=== PATIENT | male | born 1985 | race African-American/Black ===

== ENCOUNTER 2022-07-05 04:34 | Emergency (ER) | payer MEDICAID ==
[~2022-07-05] VITALS: Ht 180.3 cm; Wt 131.5 kg
--- NOTE | 2022-07-05 04:45 | NUR ---
PT RC'D IN [facility], PT ASSESSMENT PERFORMED AWAITING MD ORDERS.
[2022-07-05 04:46] VITALS: BP 135/71
--- NOTE | 2022-07-05 04:46 | NUR ---
TO BED AMBULATORY
[2022-07-05] MEDS ORDERED: NACL 0.9% 1,000 ML IV ONE (05:15)
[2022-07-05] MEDS ORDERED: ONDANSETRON 4 MG/2 ML VIAL IVP ONE (05:15)
[2022-07-05] MEDS ORDERED: KETOROLAC 30 MG/ML VIAL IVP ONE (05:15)
--- NOTE | 2022-07-05 05:20 | NUR ---
TO CT VIA W/C
--- NOTE | 2022-07-05 05:27 | NUR ---
RETURNED FROM CT
[2022-07-05 05:58] LABS: APPEARANCE,URINE CLEAR (CLEAR); BILIRUBIN,URINE NEGATIVE (NEGATIVE); BLOOD, URINE TRACE-I (NEGATIVE); COLOR,URINE YELLOW (YELLOW); LEUKOCYTE ESTERASE ,URINE NEGATIVE (NEGATIVE); NITRITE, URINE NEGATIVE (NEGATIVE); UGLUCOSE NEGATIVE (NEGATIVE)
[2022-07-05 06:05] LABS: BASOPHILS % (AUTO) 0.2 % (0.0-2.0); EOSINOPHILS % (AUTO) 0.3 % (0.0-4.0); HEMATOCRIT 43.4 % (36-52); HEMOGLOBIN 15.1 g/dL (12.0-18.0); LYMPHOCYTES # (AUTO) 0.9 K/uL (2.0-11.5); LYMPHOCYTES % (AUTO) 16.3 % (20.5-51.1); MEAN CORPUSCULAR HEMOGLOBIN 30 pg (27-31); MEAN CORPUSCULAR HGB CONC 35 g/dL (33-37); MEAN CORPUSCULAR VOLUME 84.9 fL (80-94); MONOCYTES # (AUTO) 0.5 K/uL (0.8-1.0); MONOCYTES % (AUTO) 10.1 % (1.7-9.3); NEUTROPHILS # (AUTO) 3.9 K/uL (1.8-7.7); NEUTROPHILS % (AUTO) 73.1 % (42.2-75.2); PLATELET COUNT (AUTO) 279 K/uL (140-450); RED BLOOD CELL COUNT(AUTO) 5.11 MIL/uL (4.20-6.10); RED CELL DISTRIBUTION WIDTH 13.6 % (11.6-13.7); WHITE BLOOD COUNT (AUTO) 5.3 K/uL (4.8-10.8)
[2022-07-05 06:11] LABS: CARBON DIOXIDE 32.3 mmol/L (21-32); CREATININE 1.3 mg/dL (0.6-1.3); POTASSIUM 3.3 mmol/L (3.5-5.1); TOTAL BILIRUBIN 0.5 mg/dL (0.0-1.0)
[2022-07-05 06:23] LABS: RBC,URINE 0-5 /HPF (0-5); WBC,URINE 0-5 /HPF (0-5)
--- NOTE | 2022-07-05 07:22 | NUR ---
Recieved report from SATURNINO Yancey for transfer of care.
[2022-07-05] MEDS ORDERED: CEPH-588 PO (07:42)
[2022-07-05] MEDS ORDERED: BEN10 PO (07:42)
[2022-07-05] MEDS ORDERED: ONDA-188 SL (07:42)
--- NOTE | 2022-07-05 08:22 | NUR ---
IV removed, catheter intact and site benign. Applied folded 4x4 gauze and tape to stop bleeding.
[2022-07-05 08:23] VITALS: BP 137/84
--- NOTE | 2022-07-05 08:23 | NUR ---
Patient discharged with v/s stable. Written and verbal after care instructions given and explained. Patient alert, oriented and verbalized understanding of instructions. Ambulatory with steady gait. All questions addressed prior to discharge. ID band removed. Patient advised to follow up with PMD. Rx of BENTYL, KEFLEX, ZOFRAN (SENT) given. Patient educated on indication of medication including possible reaction and side effects. Opportunity to ask questions provided and answered. COPY OF LABS AND IMAGING GIVEN
== END 2022-07-05 08:23 | disposition home or self-care (01) ==
LOC: MED 04:34
DX: R10.9 Unspecified abdominal pain (principal); R11.10 Vomiting, unspecified; R19.7 Diarrhea, unspecified; Z79.899 Other long term (current) drug therapy
CPT/HCPCS: 36415; 74176; 80053; 81001; 83690; 85025; 96361; 96374; 96375; 99285; J1885; J2405; J7030